=== PATIENT | female | born 1985 | race Caucasian/White ===

== ENCOUNTER → 2020-09-18 | Outpatient (CLI) | payer OTHER | LOC: LABWHC1 15:00 | PROVIDERS: ATTEND Family Medicine | DX: Z20.822 Contact with and (suspected) exposure to COVID-19 (principal) | CPT/HCPCS: U0003; U0005 ==

== ENCOUNTER → 2020-10-17 | Outpatient (CLI) | payer OTHER | END | disposition home or self-care (01) | LOC: LABWHC1 14:10 | PROVIDERS: ATTEND Nurse Practitioner | DX: Z20.822 Contact with and (suspected) exposure to COVID-19 (principal) | CPT/HCPCS: U0003; C9803; U0005 ==

== ENCOUNTER 2021-03-30 16:25 | Inpatient (IN) | payer MEDICAID, OTHER ==
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
[2021-03-30 17:27] LABS: Amphetamine Screen,Urine Not Detected (NotDetected); Barbiturate Screen,Urine Not Detected (NotDetected); Benzodiazepines Screen,Urine Not Detected (NotDetected); Cocaine Screen,Urine Not Detected (NotDetected); Methadone Screen, Urine Not Detected (NotDetected); Opiate Screen,Urine Not Detected (NotDetected); Oxycodone Screen, Urine Not Detected (NotDetected); Phencyclidine Screen,Urine Not Detected (NotDetected); Tricyclic Antidepressant,Urine Not Detected (NotDetected); Urn Cannabinoid Scrn Not Detected (NotDetected)
[2021-03-30] MEDS ORDERED: MAG HYDROX/AL HYDROX/SIMETH 30 ML CUP PO PRN (18:54)
[2021-03-30] MEDS ORDERED: MAGNESIUM HYDROXIDE 2,400 MG/10 ML CUP PO PRN (18:54)
[2021-03-30] MEDS ORDERED: LORazepam 1 MG TAB PO PRN (18:54)
[2021-03-30] MEDS ORDERED: LORazepam 2 MG/ML INJ IM PRN (19:02)
[2021-03-30] MEDS ORDERED: HALOPERIDOL LACTATE 5 MG/ML 1 ML VIAL IM PRN (19:03)
[2021-03-31] MEDS: ACETAMINOPHEN TAB 325 MG TAB PO PRN ×2 (00:06→10:14)
[2021-03-31 06:07] VITALS: RESP 16
--- NOTE | 2021-03-31 11:27 | P.CONS ---
History of Present Illness - Reason for Consult Medical clearance - History of Present Illness 36-year-old female admitted for the major depression and suicidal ideation patient is comparing of anxiety be tachycardic be on which denied any other complaints. REVIEW OF SYSTEMS: CONSTITUTIONAL: No fever, no malaise, no fatigue. HEENT: No recent visual problems or hearing problems. Denied any sore throat. CARDIOVASCULAR: No chest pain, orthopnea, PND, no palpitations, no syncope. PULMONARY: No shortness of breath, no cough, no hemoptysis. GASTROINTESTINAL: No diarrhea, no nausea, no vomiting, no abdominal pain. NEUROLOGICAL: No headaches, no weakness, no numbness. HEMATOLOGICAL: Denies any bleeding or petechiae. GENITOURINARY: Denies any burning micturition, frequency, or urgency. MUSCULOSKELETAL/RHEUMATOLOGICAL: Denies any joint pain, swelling, or any muscle pain. ENDOCRINE: Denies any polyuria or polydipsia. The rest of the 14-point review of systems is negative. PHYSICAL EXAMINATION: GENERAL: The patient is alert and oriented x3, not in any acute distress. Well developed, well nourished. HEENT: Pupils are round and equally reacting to light. EOMI. No scleral icterus. No conjunctival pallor. Normocephalic, atraumatic. No pharyngeal erythema. No thyromegaly. CARDIOVASCULAR: S1 and S2 present. No murmurs, rubs, or gallops. PULMONARY: Chest is clear to auscultation, no wheezing or crackles. ABDOMEN: Soft, nontender, nondistended, normoactive bowel sounds. No palpable organomegaly. MUSCULOSKELETAL: No joint swelling or deformity. EXTREMITIES: No cyanosis, clubbing, or pedal edema. NEUROLOGICAL: Gross neurological examination did not reveal any focal deficits. SKIN: No rashes. Assessment and plan 1 tachycardia: Secondary to anxiety patient is sinus tachycardia no further workup treat anxiety as per primary service - major depression and suicidal side of ideation management as per primary service No further recommendations from medicine perspective we'll sign off at this time. Please call us back if needed Past Medical History Past Medical History: No Reported History History of Any Multi-Drug Resistant Organisms: None Reported Past Surgical History: No Surgical Hx Reported Past Psychological History: Depression Smoking Status: Never smoker Past Alcohol Use History: None Reported Past Drug Use History: Marijuana Medications and Allergies Home Medications Medication Instructions Recorded Confirmed Type Etonogestrel/Ethinyl Estradiol 1 vag ring VAGINAL Q28D 03/30/21 03/30/21 History [Nuvaring Vaginal Ring] Allergies Allergy/AdvReac Type Severity Reaction Status Date / Time No Known Allergies Allergy Verified 03/30/21 17:16 Physical Exam Vitals: Vital Signs Temp Pulse Pulse Resp BP BP Pulse Ox 03/31/21 06:00 97.9 F 99 16 138/78 99 03/31/21 00:09 99 18 99 03/30/21 21:57 18 98 03/30/21 19:37 97.8 F 108 H 98 H 147/76 03/30/21 16:27 97.9 F 101 H 20 143/89 99 Intake and Output 03/30/21 03/31/21 03/31/21 22:59 06:59 14:59 Other: Weight 90.4 kg
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
[2021-03-31] MEDS: OLANZapine 5 MG TAB PO SCH ×2 (17:24→20:51)
[2021-03-31] MEDS: SERTRALINE 50 MG TAB PO SCH (17:26)
[2021-03-31 17:45] LABS: T4, Free (Free Thyroxine) 1.47 ng/dL (0.78-2.19)
[2021-04-01 08:20] LABS: Basophils % (A) 1 %; Eosinophils # (A) 0.1 k/uL (0-0.7); Eosinophils % (A) 2 %; HCT 41.9 % (34.0-46.0); HGB 13.7 gm/dL (11.4-16.0); Lymphocytes # (A) 2.1 k/uL (1.0-4.8); Lymphocytes % (A) 38 %; MCH 27.8 pg (25.0-35.0); MCHC 32.7 g/dL (31.0-37.0); MCV 85.1 fL (80.0-100.0); Mean Platelet Volume 8.6; Monocytes # (A) 0.2 k/uL (0-1.0); Monocytes % (A) 4 %; Neutrophils % (A) 54 %; Platelet Count 218 k/uL (150-450); RBC 4.92 m/uL (3.80-5.40); RDW 13.2 % (11.5-15.5); WBC 5.5 k/uL (3.8-10.6)
[2021-04-01 08:32] LABS: ALT 38 U/L (4-34); AST 27 U/L (14-36); African American GFR (CKD) 65 (>60 ml/min/1.73 sqM); Albumin 4.1 g/dL (3.5-5.0); Alkaline Phosphatase 41 U/L (38-126); Anion Gap 7 mmol/L; Blood Urea Nitrogen 11 mg/dL (7-17); Calcium 9.5 mg/dL (8.4-10.2); Carbon Dioxide 23 mmol/L (22-30); Chloride 108 mmol/L (98-107); Glucose 96 mg/dL (74-99); Non-African American GFR(CKD) 56 (>60 ml/min/1.73 sqM); Potassium 4.4 mmol/L (3.5-5.1); Sodium 138 mmol/L (137-145); Total Bilirubin 0.4 mg/dL (0.2-1.3); Total Protein 7.3 g/dL (6.3-8.2)
[2021-04-01] MEDS: OLANZapine 5 MG TAB PO SCH ×2 (08:42→20:56)
[2021-04-01] MEDS: SERTRALINE 50 MG TAB PO SCH (08:43)
[2021-04-01 11:18] LABS: Chol/HDL Ratio 3.78 Ratio; LDL Cholesterol,Calculated 102.2 mg/dL (0.0-131.0)
--- NOTE | 2021-04-01 11:23 | PN ---
PROGRESS NOTE DATE OF SERVICE: 04/01/2021 CHIEF COMPLAINT: The patient was depressed. She had high stress and was having panic attacks. INTERVAL HISTORY: Patient has been doing fair. She had a quiet day yesterday. She comes out on the unit. She attended groups and seems to have good engagement. She will interact with others. She appears comfortable in the milieu. She slept fair last night. Today she has been up. She notes that when she took the Zoloft yesterday around 6 in the evening it caused her to be very tired, to the point where she went to bed and slept much of the evening. She requests taking Zoloft in the evening time instead of morning. She took Zyprexa this morning without difficulties. She continues to focus on some of the struggles she had in her relationship with her significant other. She believes the two of them are going to stay apart and she acknowledges that he struggles with depression about as much as she does. She acknowledges she has a lot of guilt, self-blame and poor self-esteem, which are the biggest struggles for her. She does feel that her mood is somewhat improved and she has somewhat less anxiety than when coming in. She tolerates her psychotropic medications. MENTAL STATUS: Patient sat without restlessness. She gave good eye contact. She answered questions appropriately. Her thoughts were clear and coherent. Her affect was somewhat anxious, her mood reserved though not clearly down or depressed. She did not appear to be significantly distressed. There was no indication of thought disorder. She voiced no thoughts of harm. Cognition is clear. ASSESSMENT: I will continue current diagnosis and treatment plan. I will continue psychotropic medications the same. It is noted that the patient has a past diagnosis of hyperthyroidism. Her TSH was less than 0.015. Free T4 was 1.47, in the normal range. Free T3 was 3.4, in the normal range. I discussed the process of working with her medications and looking towards short-term use of Zyprexa while Zoloft has a chance of becoming fully effective. She may need to be titrated up on Zoloft as part of followup. In addition, we discussed that it would be to her benefit to be able to taper off of Zyprexa if she makes good progress with her antidepressant. I will check a lipid profile. We will coordinate with [facility][1], as she is just getting set up for a prescriber along with her therapist. We will focus on stabilization and discharge planning. MMSCOTTYL / IJN: [id number] /
[2021-04-01] MEDS ORDERED: SERTRALINE 50 MG TAB PO SCH (21:00)
[2021-04-02 07:00] VITALS: BP 119/69; PULSE 100; TEMP 98
[2021-04-02] MEDS: OLANZapine 5 MG TAB PO SCH (08:25)
--- NOTE | 2021-04-02 11:05 | P.PN ---
Progress Note - Text Progress Note Date: 04/02/21 Interval History: Patient was seen attending group and was directable and agreeable to speak with writer editor in the office. Patient reports that she is feeling better since her admission. She has been attending groups and has been harassed her medications. She acknowledges that she has numerous life stressors that is contributing to her low mood however states that she has had time being in here to process what she is going through. She is currently not endorsing any suicidal or homicidal ideation, intention,/or plan. She is not reporting any auditory or visual hallucinations. She denies any paranoia or other delusions. Patient has been with the medications and is not endorsing any significant side effects at this time. She has been noted to be attending groups with a high-level participation. Mental Status Exam: General Appearance: Patient appears to be stated age is alert, directable, and cooperative. Wearing glasses. Behavior: Patient is calmly seated without any agitated behavior. Appropriately tearful. Speech: Patient's speech is fluent and nonpressured. Mood/Affect: Mood is improving mildly, affect is congruent and constricted. Suicidality/Homicidality: Patient denies having any suicidal or homicidal ideation intent or plan. Perceptions: Patient denies any visual hallucinations and denies any auditory hallucinations Though content/process: There is no evidence of any delusional thought content and thought process is linear and goal-directed. Memory and concentration: AOX3, grossly intact for the purposes of this session Judgment and insight: Improving mildly Vital Signs Temp 98 F 04/02/21 06:59 Pulse 100 04/02/21 06:59 Resp 16 04/02/21 06:59 BP 119/69 04/02/21 06:59 Pulse Ox 98 04/02/21 06:59 Intake & Output 04/01/21 04/02/21 04/02/21 18:59 06:59 18:59 Weight 91.1 kg Laboratory Results - Last 24 Hours 04/01/21 04/01/21 07:21 07:[address] Glu mg/dL 110 Hemoglobin A1c 5.5 Triglycerides 118.00 Cholesterol 171.00 LDL Cholesterol, Calc 102.2 VLDL Cholesterol, Calc 23.60 HDL Cholesterol 45.20 Cholesterol/HDL Ratio 3.78 Assessment Major depressive disorder, recurrent, severe, without psychotic features Panic disorder Plan: -Patient continues to meet criteria for inpatient psychiatric admission for symptom stabilization and safety. Patient has signed adult voluntary form and medication consent and was placed in patient's chart. -Medications: Increase Zoloft to 75 mg by mouth at bedtime for depression/anxiety Change Zyprexa to 10 mg by mouth at bedtime due to concerns for sedation during the day. -When necessary Ativan and Haldol for agitation/aggression. -SW on board for discharge planning. Encouraged the patient to participate in milieu.
[2021-04-02] MEDS ORDERED: OLANZapine 5 MG TAB PO SCH (21:00)
[2021-04-02] MEDS ORDERED: SERTRALINE 25 MG TAB PO SCH (21:00)
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
== END 2021-04-03 13:30 | disposition home or self-care (01) | DRG 880 ==
LOC: EC 16:25 → 3MHU 18:51
PROVIDERS: ADMIT Psychiatry & Neurology Psychiatry; ATTEND Psychiatry & Neurology Psychiatry
DX: F99 Mental disorder, not otherwise specified (principal); F33.2 Major depressive disorder, recurrent severe without psychotic features; F41.0 Panic disorder [episodic paroxysmal anxiety]; Z81.8 Family history of other mental and behavioral disorders; E05.90 Thyrotoxicosis, unspecified without thyrotoxic crisis or storm; Z79.899 Other long term (current) drug therapy; Z20.822 Contact with and (suspected) exposure to COVID-19; Z63.5 Disruption of family by separation and divorce; Z71.89 Other specified counseling; Z86.59 Personal history of other mental and behavioral disorders; Z98.890 Other specified postprocedural states
CPT/HCPCS: 80053; 80061; 80306; 82075; 83036; 84439; 84443; 84481; 85025; 87635